=== PATIENT | female | born 1985 | race Caucasian/White ===

== ENCOUNTER → 2018-09-12 15:55 | Observation (INO) ==
[2018-09-12 14:49] LABS: Amphetamine Screen,Urine Negative ng/mL (Cutoff=1000); Barbiturate Screen,Urine Negative ng/mL (Cutoff=200)
[2018-09-12 14:50] LABS: Benzodiazepines Screen,Urine Negative ng/mL (Cutoff=300); Cannabinoid Screen,Urine Negative ng/mL (Cutoff = 50); Cocaine Screen,Urine Negative ng/mL (Cutoff= 300); Opiate Screen,Urine Negative ng/mL (Cutoff=300); Phencyclidine Screen,Urine Negative ng/mL (Cutoff=25)
--- NOTE | 2018-09-12 15:42 | Discharge Summary ---
Date of Encounter: 09/12/18 Time of Encounter: 15:40 - Discharge Diagnosis (1) 36 weeks gestation of Priority: Primary Status: Acute Comments: Admit to observation for prolonged monitoring (2) NST (non-stress test) reactive Priority: Secondary Status: Acute Comments: FHR 155 bpm, moderate variability, +15 x 15 accelerations, no decelerations. (3) Hypertension affecting in third trimester Priority: Secondary Status: Acute Comments: Continue biweekly NSTs. Return to office or L&D for signs and symptoms of frequency. - Discharge Medications Prescriptions: No Action Pnv Plus Multivit Tab 1 tab PO DAILY Home Medications: Pnv Plus Multivit Tab 1 tab PO DAILY 09/12/18 [History] Allergies/Adverse Reactions: Allergy/AdvReac Type Severity Reaction Status Date / Time No Known Allergies Allergy Verified 06/29/15 15:32 Data Procedures and tests throughout hospitalization: Laboratory Tests 09/12/18 13:30 Urine Opiates Screen Negative Ur Buprenorphine Scrn Negative Ur Barbiturates Screen Negative Ur Phencyclidine Scrn Negative Ur Amphetamines Screen Negative U Benzodiazepines Scrn Negative Urine Cocaine Screen Negative U Marijuana (THC) Screen Negative Ur Drug Screen Interp See Below Labs on day of discharge: Labs from last 24 hours 09/12/18 13:30 Urine Opiates Screen Negative Ur Buprenorphine Scrn Negative Ur Barbiturates Screen Negative Ur Phencyclidine Scrn Negative Ur Amphetamines Screen Negative U Benzodiazepines Scrn Negative Urine Cocaine Screen Negative U Marijuana (THC) Screen Negative Ur Drug Screen Interp See Below Date of admission: 09/12/18 13:09 Primary care physician: Cynthia Goodson CNP Discharging clinician: Pia Armstrong Anticipated date of discharge: 09/12/18 - Patient Status Disposition: Home, Self-Care Condition: Good Functional capacity at discharge: independent ambulation Overall status at discharge: patient is not back to baseline - Discharge Instructions Follow Up With: Cynthia Goodson CNP [Primary Care Provider] - - Diet and Activity Activity: resume usual activities as tolerated Diet: regular diet Hospital Course [employer] Hospital course: Patient was sent from office for variable decelerations noted on NST. She has a reactive NST here with no variable decelerations noted. She is to return to the office on Wednesday for NST. She reports positive movement, denies vaginal bleeding and fluid leakage. Time Attestation: Total time spent providing and/or coordinating discharge services: Time Spent: Less than 30 minutes Exam - Constitutional General appearance IM: A&O X 3, no acute distress, answers questions appropriately - Respiratory Respiratory exam: Present: CTAB. Absent: respiratory distress - Cardiovascular Cardiovascular exam IM: Present: RRR, +S1, +S2. Absent: irregular rhythm - GI/Abdominal GI/Abdominal exam IM: normal bowel sounds, soft - Rectal Rectal exam: deferred - Extremities Exam Extremities exam IM: Present: full ROM, normal capillary refill, normal inspection. Absent: calf tenderness - Neurological Exam Neurological exam: alert, normal gait, oriented X3 - VTE Reasons for not Prescribing Prophylaxis: Treatment not Indicated - Low risk for VTE
== END | disposition home or self-care (01) ==
LOC: 1NENULAB
PROVIDERS: ADMIT Obstetrics & Gynecology; ATTEND Obstetrics & Gynecology

== ENCOUNTER 2018-10-05 06:00 | Inpatient (IN) ==
[2018-10-05] MEDS ORDERED: Lidocaine 1% 20 ML MDV INFILT PRN (06:09)
[2018-10-05] MEDS ORDERED: Naloxone 0.4 MG/ML INJ IVP PRN (06:09)
[2018-10-05] MEDS ORDERED: Ondansetron 4 MG/2 ML VIAL IVP PRN (06:09)
[2018-10-05] MEDS ORDERED: *HR* Nalbuphine 10 MG/ML AMPUL IVP PRN (06:09)
[2018-10-05] MEDS ORDERED: Famotidine 20 MG/2 ML VIAL IVP PRN (06:09)
[2018-10-05] MEDS ORDERED: Metoclopramide 10 MG/2 ML VIAL IVP PRN (06:09)
[2018-10-05] MEDS ORDERED: Oxytocin 20 units/ LR 1000 mL 20 UNIT/1,000 ML BAG IVC SCH (06:15)
[2018-10-05] MEDS: Ringers Solution, Lactated 1,000 ML IVC SCH ×2 (06:49→17:18)
[2018-10-05 06:57] LABS: Basophils % 0.3 %; Eosinophils # 0.1 K/mcL (0.0-0.6); Eosinophils % 1.4 %; Hematocrit 38.4 % (35.3-44.9); Hemoglobin 12.4 g/dL (11.5-15.4); Lymphocytes # 2.7 K/mcL (0.6-4.6); Lymphocytes % 28.1 %; Mean Corpuscular HGB Conc 32.3 g/dL (31.6-35.5); Mean Corpuscular Hemoglobin 28.8 pg (28.0-33.3); Mean Corpuscular Volume 89.1 fL (83.0-100.0); Mean Platelet Volume 10.4 fL (9.4-12.4); Monocytes # 0.9 K/mcL (0.0-1.3); Monocytes % 9.4 %; Neutrophils # 5.8 K/mcL (1.6-8.9); Platelet Count 305 K/mcL (140-400); Red Blood Count 4.31 M/mcL (3.82-4.97); Red Cell Distribution Width 14.2 % (11.5-14.5); Segmented Neutrophils % 59.8 %; White Blood Count 9.6 K/mcL (4.3-11.1)
[2018-10-05 07:45] LABS: Amphetamine Screen,Urine Negative ng/mL (Cutoff=1000); Barbiturate Screen,Urine Negative ng/mL (Cutoff=200)
[2018-10-05 07:46] LABS: Benzodiazepines Screen,Urine Negative ng/mL (Cutoff=300); Cannabinoid Screen,Urine Negative ng/mL (Cutoff = 50); Cocaine Screen,Urine Negative ng/mL (Cutoff= 300); Opiate Screen,Urine Negative ng/mL (Cutoff=300); Phencyclidine Screen,Urine Negative ng/mL (Cutoff=25)
[2018-10-05] MEDS ORDERED: *HR* FentaNYL (PF) 100 MCG/2 ML VIAL EP ONE (07:46)
[2018-10-05] MEDS ORDERED: Bupivacaine-MPF 0.25% 10 ML VIAL EP ONE (07:46)
[2018-10-05] MEDS ORDERED: Epidural Premix (fent/bupiv) 110 ML EP SCH (08:00)
[2018-10-05] MEDS ORDERED: Bupivacaine-MPF 0.25% 10 ML VIAL ONE (13:26)
[2018-10-05] MEDS ORDERED: *HR* FentaNYL (PF) 100 MCG/2 ML VIAL ONE (13:26)
[2018-10-05] MEDS ORDERED: Acetaminophen 325 MG TABLET PO ONE (20:38)
[2018-10-06] MEDS ORDERED: Measles/Mumps/Rubella Vacc 0.5 ML VIAL SQ PRN (00:02)
[2018-10-06] MEDS ORDERED: Acetaminophen 325 MG TABLET PO PRN (00:02)
[2018-10-06] MEDS ORDERED: Oxytocin 20 units/ LR 1000 mL 20 UNIT/1,000 ML BAG IVC SCH (00:02)
[2018-10-06 07:02] LABS: Basophils % 0.2 %; Eosinophils # 0.1 K/mcL (0.0-0.6); Eosinophils % 0.7 %; Hematocrit 32.5 % (35.3-44.9); Immature Granulocytes % 0.7 % (0-4); Lymphocytes # 2.4 K/mcL (0.6-4.6); Lymphocytes % 17.6 %; Mean Corpuscular HGB Conc 32.3 g/dL (31.6-35.5); Mean Corpuscular Hemoglobin 29.2 pg (28.0-33.3); Mean Corpuscular Volume 90.3 fL (83.0-100.0); Mean Platelet Volume 10.6 fL (9.4-12.4); Monocytes # 0.9 K/mcL (0.0-1.3); Monocytes % 6.3 %; Neutrophils # 10.3 K/mcL (1.6-8.9); Platelet Count 229 K/mcL (140-400); Red Cell Distribution Width 14.4 % (11.5-14.5); Segmented Neutrophils % 74.5 %; White Blood Count 13.8 K/mcL (4.3-11.1)
[2018-10-06 07:18] LABS: Hemoglobin 10.5 g/dL (11.5-15.4)
[2018-10-06 08:22] VITALS: BP 105/67
[2018-10-06] MEDS ORDERED: Prenatal Vit/FA 1 EACH TABLET PO SCH (09:00)
[2018-10-06] MEDS ORDERED: Ibuprofen 600 MG TABLET PO PRN (11:56)
== END 2018-10-06 23:10 | disposition home or self-care (01) | DRG 807 ==
LOC: 1NENULAB 06:08 → 1NENUOBS 10-06 00:22
PROVIDERS: ADMIT Obstetrics & Gynecology; ATTEND Obstetrics & Gynecology